=== PATIENT | male | born 1965 | race African-American/Black ===

== ENCOUNTER 2017-02-10 13:55 | Inpatient (IN) | payer OTHER ==
[~2017-02-10] VITALS: Ht 193 cm; Wt 111.1 kg
--- NOTE | 2017-02-10 14:08 | NUR ---
PT STATES THAT HE TRIPPED AND TWISTED HIS R ANKLE. STATES THAT HE STUMBLED DOWN 3 FLIGHTS OF STAIRS WITHOUT FALLING
--- NOTE | 2017-02-10 14:16 | NUR ---
PT TO XRAY AT THIS TIME
--- NOTE | 2017-02-10 14:21 | NUR ---
PT NOTED TO BE PALE, UPON MST ENTERING ROOM AND PLACING PT ON MONITOR. PT NOTED TO BE IN RAPID A-FIB. MD TO BEDSIDE. IV EST TO LAC. PT DENIES CHEST PAIN OR SOB
--- NOTE | 2017-02-10 14:39 | NUR ---
LABS ORDERED PER DR. ALMARAZ REQUEST
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
--- NOTE | 2017-02-10 14:44 | NUR ---
LABS DRAWN AND SENT BY THIS MST BLUE, SST, LAV, PINK ,ROJO
--- NOTE | 2017-02-10 14:44 | NUR ---
PT MEDICATED WITH 10MG IV CARDIZEM PER ORDER AT THIS TIME, HR 140-170 ON MONITOR
[2017-02-10 14:49] LABS: ABSOLUTE BASOPHIL COUNT 0 /CUMM (0.0-0.2); ABSOLUTE EOSINOPHIL COUNT 0.1 /CUMM (0.0-0.7); ABSOLUTE GRANULOCYTE CT 2.5 /CUMM (1.4-6.5); ABSOLUTE LYMPH COUNT 1.6 /CUMM (1.2-3.4); ABSOLUTE MONOCYTE COUNT 0.5 /CUMM (0.10-0.60); BASOPHIL % 0.6 % (0.0-2.0); EOSINOPHIL % 1.5 % (0-5); GRANULOCYTE % 52.5 % (42.2-75.2); HEMATOCRIT 45.2 % (42-52); MEAN CORPUSCULAR HGB 30.2 PG (27.0-31.0); MEAN CORPUSCULAR HGB CONC 33.2 G/DL (33.0-37.0); MEAN CORPUSCULAR VOLUME 91.1 FL (80.0-94.0); MEAN PLATELET VOLUME 8.8 FL (7.4-10.4); PLATELET COUNT 210 /CUMM (130-400); RBC DISTRIBUTION WIDTH 13.7 % (11.5-14.5); RED BLOOD CELL CT 4.96 /CUMM (4.70-6.10); WHITE BLOOD CELL COUNT 4.7 /CUMM (4.8-10.8)
--- NOTE | 2017-02-10 14:50 | NUR ---
CARDIZEM INFUSING AT 10ML/HR AT THIS TIME PER ORDER BY DR DEL VALLE. DR DEL VALLE AT BEDSIDE. BP 165/98 AT THIS TIME.
--- NOTE | 2017-02-10 15:05 | NUR ---
CARDIZEM REMIANS INFUSING PER ORDER AT THIS TIME. SECOND IV PLACED #18 L FOREARM HR 130-150 AT THIS TIME
--- NOTE | 2017-02-10 15:14 | NUR ---
DR FOUNTAIN AT BEDSIDE
--- NOTE | 2017-02-10 15:18 | RADIOLOGY REPORT ---
EXAMINATION: XR PORTABLE CHEST CLINICAL INFORMATION: CHF and effusion, dyspnea with atrial fibrillation. COMPARISON: 08/04/2011 TECHNIQUE: Portable AP view of the chest was obtained. Costophrenic angles are not completely included on this exam. FINDINGS: The heart is enlarged which has increased in size compared with the previous exam. The cardiomediastinal silhouette is otherwise unremarkable. The lungs and pleural spaces appear clear without evidence of congestion, consolidation, or significant appearing effusion or atelectasis. There is no evidence of pneumothorax or pulmonary edema. Included osseous structures appear largely unremarkable. IMPRESSION: Cardiomegaly, no evidence of an acute intrathoracic process.
--- NOTE | 2017-02-10 16:24 | NUR ---
PT SITTING ON STRETCHER, HR REMAINS 100-120 ON MONITOR AT THIS TIME PT COMPLAINT FREE. ASSISTED TO STAND AT BEDIDE AND VOID IN URINAL
--- NOTE | 2017-02-10 16:59 | NUR ---
DIET ORDER PLACED AT THIS TIME, PER DR IVON BRUCE OK
--- NOTE | 2017-02-10 17:01 | History & Physical ---
DENA PADILLA,JOAN 02/10/17 1701: General Information and HPI MD Statement: I have seen and personally examined WIN HODGES and documented this H&P. The patient is a 51 year old M who presented with rt ankle injury. 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 While getting assessed for his right shoulder and the course of obtaining an x-ray, he developed palpitation and upon examination was found to be having atrial fibrillation which is his first episode. Telemetry applications project manager team was called to assess and manage the patient. Patient has swelling and pain over medial aspect of his left ankle, and he described the mechanism of injury to be inversion injury. Patient also complained of right-sided shoulder pain. He was able to move the shoulder normally though. Patient does not give any history of chest pain, palpitation, nausea, vomiting, dizziness, drowsiness, fever, chills that could indicate any other mechanism of fall other than mechanical. Of note, patient denies any past medical history, past surgical history, smoking , alcohol abuse, drug abuse history. 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 Home Services at Home: None Primary Language: Tajik Smoking Status: Never Smoked ETOH Use: denies use Illicit Drug Use: denies illicit drug use Functional Ability ADLs Independent: dressing, eating, toileting, bathing. Ambulation: independent IADLs Independent: shopping, housework, finances, food prep, telephone, transportation , medication admin. Employment History Employment Employed Profession/Employer [employer] Review of Systems Review of Systems Constitutional: Reports: no symptoms. EENTM: Reports: no symptoms. Cardiovascular: Reports: no symptoms. Denies: chest pain, orthopena, palpitations, peripheral edema, syncope. Respiratory: Reports: no symptoms. GI: Reports: no symptoms. Genitourinary: Reports: no symptoms. Musculoskeletal: Reports: see HPI. Skin: Reports: no symptoms. Neurological/Psychological: Reports: no symptoms. Hematologic/Endocrine: Reports: no symptoms. All Other Systems: Reviewed and Negative Exam & Diagnostic Data Last 24 Hrs of Vital Signs/I&O Vital Signs Date Time Temp Pulse Resp B/P B/P Pulse O2 O2 Flow FiO2 Mean Ox Delivery Rate 02/10 1940 98 Nasal 2.0L Cannula 02/10 1926 99.2 67 20 110/72 97 Nasal 2.0L Cannula 02/10 1815 98.4 103 18 111/76 98 Nasal 2.0L Cannula 02/10 1653 98.6 82 18 122/76 98 Nasal 2.0L Cannula 02/10 1623 103 20 137/89 98 Nasal 2.0L Cannula 02/10 1513 98.6 108 18 165/98 98 Room Air 02/10 1509 96 Nasal 2.0L Cannula 02/10 1444 97.3 172 18 132/61 02/10 1403 97.3 52 18 174/76 96 Room Air Intake & Output 02/10 1600 02/10 0800 02/10 0000 Intake Total Output Total Balance Patient 111.13 kg Weight Physical Exam General Appearance Alert, Oriented X3, Cooperative, No Acute Distress Last 24 Hrs of Labs/Alex: Laboratory Tests 02/10/17 1442: TSH Cancelled 02/10/17 1442: Anion Gap 12, Estimated GFR > 60, BUN/Creatinine Ratio 17.0, Glucose 99, Calcium 9.1, Magnesium 2.0, Total Bilirubin 1.3, AST 19, ALT 32, Alkaline Phosphatase 57 , Troponin I < 0.01, Total Protein 6.9, Albumin 3.8, Globulin 3.1, Albumin/ Globulin Ratio 1.2, TSH 1.470, CBC w Diff NO MAN DIFF REQ, RBC 4.96, MCV 91.1, MCH 30.2, RDW 13.7, MPV 8.8, Gran % 52.5, Lymphocytes % 34.1, Monocytes % 11.3 H, Eosinophils % 1.5, Basophils % 0.6, Absolute Granulocytes 2.5, Absolute Lymphocytes 1.6, Absolute Monocytes 0.5, Absolute Eosinophils 0.1, Absolute Basophils 0, PUBS MCHC 33.2 Diagnostic Data EKG Results atrial fibrillation with rate at 169 CXR Results IMPRESSION: Cardiomegaly, no evidence of an acute intrathoracic process. DICTATED BY: MALLY CLARK MD DATE/TIME DICTATED:02/10/171511 DANCING TEACHER:CHRIS DATE/TIME TRANSCRIBED:02/10/171511 Other Results ANKLE X-RAY: IMPRESSION: No acute fracture or dislocation is seen. DICTATED BY: MALLY CLARK MD DATE/TIME DICTATED:02/10/171435 DANCING TEACHER:CHRIS DATE/TIME TRANSCRIBED:02/10/171435 PHYSICAL EXAM: General: well nourished patient not in distress Head: Normocephalic, atraumatic Eyes: Pupils normal in size, regular, reacting to light and accommodation, EOM normal Ears: B/l normal on inspection Nose: Normal on inspection Throat/mouth: Moist mucosa Neck: Supple, full range of motion, no thyromegaly Heart: irregularly irregular rate/rhythm Lung: Normal breath sound bilaterally Added sound not heard Abd: Soft, non-tender, no distention appreciated Back: Normal range of motion Extremities: Normal knee exam bilaterally, no pedal edema, right ankle has 2x2 cm swelling and mild tenderness on palpation medially, Distal neurovascular intact Neurologic: Alert, oriented x3, Cranial exam grossly intact, Speech is clear and coherent Skin: Warm and dry Psychiatric: Calm, cooperative, coherant Assessment/Plan Assessment: 51-year-old male with no significant past medical history, 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 While getting assessed for his right shoulder and the course of obtaining an x-ray, he developed palpitation and upon examination was found to be having atrial fibrillation which is his first episode. Telemetry applications project manager team was called to assess and manage the patient. #New onset atrial fibrillation Patient never had history of cardiac disease, atrial fibrillation, thus will be monitored in the telemetry unit for rate and rhythm, and since the onset is less than 24 hours and for the first time, he does not require any anticoagulation at this point of time. Cardiology has been consulted, will follow their expert opinion. -Serial troponin and EKG to rule out ACS -Patient is on Cardizem drip for rate control right now, continue same -CHADVASc score is 0 so no anticoagulation needed at this point of time if the patient is able to convert to normal sinus rhythm -Check TSH -Check echocardiogram #Mechanical fall -Patient does not give any history of chest pain, palpitation, nausea, vomiting, dizziness, drowsiness, fever, chills that could indicate any other mechanism of fall other than mechanical. Patient had sustained a mechanical fall and is being managed for the complaints as follows: #Right ankle sprain Local and systemic analgesics can be ordered, anti-inflammatory like ibuprofen can be ordered, as the x-ray is negative for any fracture or dislocation #Right shoulder injury -Follow x-ray of right shoulder, and plan accordingly Regular diet, DVT prophylaxis with subcutaneous heparin, full CODE STATUS. As Ranked By This Provider Problem List: 1. Atrial fibrillation 2. Right ankle sprain 3. Right shoulder injury 4. Fall with injury Core Measures/Miscellaneous Acute Coronary Syndrome ACS Diagnosis: No Cerebrovascular Accident CVA/TIA Diagnosis: No Congestive Heart Failure CHF Diagnosis: No Venous Thromboembolism VTE Risk Factors: Age > 40 No [facility] VTE prophylaxis d/t: No contraindications No VTE Pharm Prophylaxis d/t: No contraindications VTE Diagnosis: No VTE Type: NONE VTE Confirmed by (Test): NONE Severe Sepsis Severe Sepsis Present: No Septic Shock Septic Shock Present: No Miscellaneous Documentation Attending Case Discussed With: PATRICK COLÓN MD Primary Care Physician: LESLIE PADILLA,[facility] Patient sees these Specialists Cardiology Level of Patient Care: Telemetry PATRICK COLÓN 02/10/17 9378: Attending MD Review Statement Attending Statement Attending MD Statement: examined this patient, discuss w/resident/PA/EMERGENCY MEDICAL TECHNICIAN/DRIVER, agreed w/resident/PA/EMERGENCY MEDICAL TECHNICIAN/DRIVER, discussed with family, reviewed EMR data (avail), discussed with nursing, discussed with case mgmt, reviewed images, amended to note Attending Assessment/Plan: Assessment: 1. PAF with RVR. 2. Ankle injury PLAN - Admit to telemetry - Serial ECGs and troponins, Echocardiogram, consult cardio. - Continue IV cardizem for rate control, a/c as per cardio. - pain control. - gi/dvt prophyalxis - full code. JOY VALDES MD 02/10/172033: Resident Review Statement Resident Statement: examined this patient, discussed with psychology intern, agreed with psychology intern, reviewed EMR data (avail), reviewed images, amended to note Other Findings: This is 51-year-old -[place] male with no significant past medical history presented to ER for workup off ankle sprain after he stepped on a week and lost balance and twisted his ankle. 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 He denies fall or any head injury. She came to ER for further evaluation of his ankle pain and right shoulder pain. In ER, after getting x-ray, all of a sudden patient started having chest congestion and difficulty in breathing and on air sampling and monitoring patient noted in new onset atrial fibrillation at rate of 170. Patient denied any chest pain, shortness of breath, palpitation, dizziness, lightheadedness, nausea, vomiting or abdominal pain. Denies history of any thyroid disease or any other health condition or hypertension. His vitals on admission were T 97.3, HR 52 which went up to 172, RR 18, BP 174/ 76, O2 sat 98% on room air On physical exam patient noted alert oriented 3 in no acute distress, HEENT PERRLA EOMI, neck supple, no JVD, heart S1-S2 normal without murmur, lungs clear on auscultation, abdomen soft nontender nondistended with preserved wall sounds, no peripheral edema, no focal neuro deficit. Noted limited right ankle range of motion due to pain. Labs were significant for H&H 15/45.2, platelet 210, BUNs 17, creatinine 1, normal LFT, troponin negative, TSH 1.47, magnesium 2 Chest x-ray noted unremarkable Right ankle x-ray did not reveal any fracture or dislocation EKG revealed A. fib at rate of 163 Assessment and plan: This is a 51 year male with no significant past medical history form to be in rapid A. fib while evaluating in ER for ankle injury. 1. Atrial fibrillation with rapid ventricular rate Admit to telemetry Serial troponin and EKG Echocardiogram Continue Cardizem drip for rate control CHADVASc score is 0, will hold anticoagulation for pain patient will convert to normal sinus rhythm TSH noted normal 2. Right Ankle sprain X-ray noted negative for any fracture or dislocation Pain management 3. Right shoulder injury Get x-ray of right shoulder 4. DVT prophylaxis Subcutaneous heparin 5. Full code full code
--- NOTE | 2017-02-10 17:08 | Cons- Cardiology ---
General Information and HPI Consulting Request Date of Consult: 02/10/17 Requested By: Dr. 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 While in radiology from the ER apparently went into PAF with a rapid ventricular rate. No known history of cardiac issues. Dr. 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: NONE Surgical History Surgical History: non-contributory Psychosocial History ETOH Use: denies use Illicit Drug Use: denies illicit drug use Exam & Diagnostic Data Vital Signs and I&O Vital Signs Date Time Temp Pulse Resp B/P B/P Pulse O2 O2 Flow FiO2 Mean Ox Delivery Rate 02/10 1653 98.6 82 18 122/76 98 Nasal 2.0L Cannula 02/10 1623 103 20 137/89 98 Nasal 2.0L Cannula 02/10 1513 98.6 108 18 165/98 98 Room Air 02/10 1509 96 Nasal 2.0L Cannula 02/10 1444 97.3 172 18 132/61 02/10 1403 97.3 52 18 174/76 96 Room Air Intake & Output 02/10 1600 02/10 0800 02/10 0000 02/09 1600 02/09 0800 02/09 0000 Intake Total Output Total Balance Patient 245 lb Weight Labs/Alex Results: Laboratory Tests 02/10 02/10 1442 1442 Chemistry Sodium (137 - 145 mmol/L) 143 Potassium (3.5 - 5.1 mmol/L) 4.2 Chloride (98 - 107 mmol/L) 107 Carbon Dioxide (22 - 30 mmol/L) 25 Anion Gap (5 - 16) 12 BUN (9 - 20 mg/dL) 17 Creatinine (0.7 - 1.2 mg/dL) 1.0 Estimated GFR (>60 ml/min) > 60 BUN/Creatinine Ratio (7 - 25 %) 17.0 Glucose (65 - 99 mg/dL) 99 Calcium (8.4 - 10.2 mg/dL) 9.1 Magnesium (1.6 - 2.3 mg/dL) 2.0 Total Bilirubin (0.2 - 1.3 mg/dL) 1.3 AST (17 - 59 U/L) 19 ALT (21 - 72 U/L) 32 Alkaline Phosphatase (< 127 U/L) 57 Troponin I (<0.11 ng/ml) < 0.01 Total Protein (6.3 - 8.2 g/dL) 6.9 Albumin (3.5 - 5.0 g/dL) 3.8 Globulin (1.9 - 4.2 gm/dL) 3.1 Albumin/Globulin Ratio (1.1 - 2.2 %) 1.2 TSH (0.270 - 4.200 uIU/mL) Cancelled 1.470 Hematology CBC w Diff NO MAN DIFF REQ WBC (4.8 - 10.8 /CUMM) 4.7 L RBC (4.70 - 6.10 /CUMM) 4.96 Hgb (14.0 - 18.0 G/DL) 15.0 Hct (42 - 52 %) 45.2 MCV (80.0 - 94.0 FL) 91.1 MCH (27.0 - 31.0 PG) 30.2 RDW (11.5 - 14.5 %) 13.7 Plt Count (130 - 400 /CUMM) 210 MPV (7.4 - 10.4 FL) 8.8 Gran % (42.2 - 75.2 %) 52.5 Lymphocytes % (20.5 - 51.1 %) 34.1 Monocytes % (1.7 - 9.3 %) 11.3 H Eosinophils % (0 - 5 %) 1.5 Basophils % (0.0 - 2.0 %) 0.6 Absolute Granulocytes (1.4 - 6.5 /CUMM) 2.5 Absolute Lymphocytes (1.2 - 3.4 /CUMM) 1.6 Absolute Monocytes (0.10 - 0.60 /CUMM) 0.5 Absolute Eosinophils (0.0 - 0.7 /CUMM) 0.1 Absolute Basophils (0.0 - 0.2 /CUMM) 0 PUBS MCHC (33.0 - 37.0 G/DL) 33.2 Diagnostic Data EKG Results Atrial fibrillation: possible LVH; rapid ventriuclar rate with non specific STT changes CXR Results FINDINGS: The heart is enlarged which has increased in size compared with the previous exam. The cardiomediastinal silhouette is otherwise unremarkable. The lungs and pleural spaces appear clear without evidence of congestion, consolidation, or significant appearing effusion or atelectasis. There is no evidence of pneumothorax or pulmonary edema. Included osseous structures appear largely unremarkable. IMPRESSION: Cardiomegaly, no evidence of an acute intrathoracic process. Assessment/Plan Assessment/Plan Assessment: 1. PAF with rapid ventricular rate. 2. Ankle imjury Recommendations: - Admit to telemetry - Full lab evaluation - Serial ECGs and troponins - Echocardiogram - Continue IV cardizem for rate control - No anticoagulation for now. - Hopefully the patient will spontaneously revert to NSR - Reassess in AM for further plans. - If the patient reverts spontaneously to NSR and no other issues arise, he can be safely discharged in 24 hours on Metoprolol 25 daily. IF he does not revert to NSR, further plans in 24 hours. Consult Acknowledgment - Thank you for your consult request.
--- NOTE | 2017-02-10 18:01 | NUR ---
PT TO ROOM 189 BED 1
--- NOTE | 2017-02-10 18:13 | NUR ---
PTS DINNER TRAY NEVER ARRIVED, PTS FRIEND OUT TO GET PT DINNER. PT RESTING ON STRETCHER, REMAIS A-FIB ON MONITOR, CARDIZEM REMAINS INFUSING PER ORDER AT 10ML/HR AT THIS TIME. HR 90s-110s. BP 111/78
--- NOTE | 2017-02-10 18:39 | NUR ---
REPORT GIVEN TO FLOOR, [facility] CALLED FOR TRANSPORT
[2017-02-10 19:26] VITALS: BP 110/72
[2017-02-10 23:51] VITALS: BP 90/60
--- NOTE | 2017-02-11 06:31 | PN- Housestaff ---
See Addendum Subjective Follow-up For: Atrial fibrillation ankle sprain shoulder injury Complaints: no complaints Tele-Events Since Last Visit: A. flutter, 50-70s, multiple PVCs Subjective: Patient is comfortably lying in bed. Denies any sob, cp, dizziness, palpitation. Review of Systems Constitutional: Reports: see HPI. Objective Last 24 Hrs of Vital Signs/I&O Vital Signs Date Time Temp Pulse Resp B/P B/P Pulse O2 O2 Flow FiO2 Mean Ox Delivery Rate 02/10 2351 98.0 70 20 90/60 97 Nasal 2.0L Cannula 02/10 1940 98 Nasal 2.0L Cannula 02/10 1926 99.2 67 20 110/72 97 Nasal 2.0L Cannula 02/10 1815 98.4 103 18 111/76 98 Nasal 2.0L Cannula 02/10 1653 98.6 82 18 122/76 98 Nasal 2.0L Cannula 02/10 1623 103 20 137/89 98 Nasal 2.0L Cannula 02/10 1513 98.6 108 18 165/98 98 Room Air 02/10 1509 96 Nasal 2.0L Cannula 02/10 1444 97.3 172 18 132/61 02/10 1403 97.3 52 18 174/76 96 Room Air Intake & Output 02/11 0800 02/11 0000 02/10 1600 Intake Total 240 Output Total Balance 240 Intake, Oral 240 Patient 245 lb 245 lb Weight Weight Reported by Patient Measurement Method Physical Exam General Appearance: Alert, Oriented X3, Cooperative, No Acute Distress Skin: No Rashes Skin Temp/Moisture Exam: Warm/Dry Sepsis Skin Exam (color): Normal for Ethnicity HEENT: Atraumatic, PERRLA, EOMI, Mucous Membr. moist/pink Neck: Supple, No JVD Cardiovascular: Normal S1, Normal S2, No Murmurs Lungs: Clear to Auscultation, Normal Air Movement Abdomen: Normal Bowel Sounds, Soft, No Tenderness Neurological: Normal Speech, Strength at 5/5 X4 Ext, Normal Tone, Sensation Intact, Cranial Nerves 3-12 NL Extremities: No Cyanosis, No Edema Vascular: Pulses Symmetrical Current Medications: Current Medications Sig/Laine Start time Last Medication Dose Route Stop Time Status Admin Acetaminophen 650 MG Q6P PRN 02/10 2100 AC 02/10 PO 2159 Diltiazem HCl 125 MG Q12H 02/10 1645 AC 02/11 Sodium Chloride 100 ML IV 0226 Diltiazem HCl 125 MG Q24H 02/10 1615 DC Sodium Chloride 100 ML IV Diltiazem HCl 0 .STK-MED ONE 02/10 1450 DC IV Diltiazem HCl 10 MG ONCE ONE 02/10 1445 DC 02/10 IV PUSH 02/10 1446 1444 Diltiazem HCl 125 MG Q12H 02/10 1445 DC 02/10 Sodium Chloride 100 ML IV 1507 Diltiazem HCl 0 .STK-MED ONE 02/10 1439 DC .ROUTE Heparin Sodium 5,000 UNIT Q8 02/10 1718 AC (Porcine) SC Ibuprofen 600 MG Q6P PRN 02/10 2100 AC PO Last 24 Hrs of Lab/Alex Results Last 24 Hrs of Labs/Mics: Laboratory Tests 02/11/17 0625: Anion Gap 11, Estimated GFR > 60, BUN/Creatinine Ratio 16.7, Troponin I < 0.01 02/11/17 0600: Sodium Cancelled, Potassium Cancelled, Chloride Cancelled, Carbon Dioxide Cancelled, Anion Gap Cancelled, BUN Cancelled, Creatinine Cancelled, BUN/ Creatinine Ratio Cancelled 02/10/17 2200: Troponin I 0.02 02/10/17 1442: TSH Cancelled 02/10/17 1442: Anion Gap 12, Estimated GFR > 60, BUN/Creatinine Ratio 17.0, Glucose 99, Calcium 9.1, Magnesium 2.0, Total Bilirubin 1.3, AST 19, ALT 32, Alkaline Phosphatase 57 , Troponin I < 0.01, Total Protein 6.9, Albumin 3.8, Globulin 3.1, Albumin/ Globulin Ratio 1.2, TSH 1.470, CBC w Diff NO MAN DIFF REQ, RBC 4.96, MCV 91.1, MCH 30.2, RDW 13.7, MPV 8.8, Gran % 52.5, Lymphocytes % 34.1, Monocytes % 11.3 H, Eosinophils % 1.5, Basophils % 0.6, Absolute Granulocytes 2.5, Absolute Lymphocytes 1.6, Absolute Monocytes 0.5, Absolute Eosinophils 0.1, Absolute Basophils 0, PUBS MCHC 33.2 Assessment/Plan Assessment: This is a 51 year male with no significant past medical history form to be in rapid A. fib while evaluating in ER for ankle injury. 1. Atrial fibrillation with rapid ventricular rate still remains in Atrial flutter Serial troponin and EKG, remains negative Echocardiogram in am Continue Cardizem drip for rate control CHADVASc score is 0, will hold anticoagulation for pain patient will convert to normal sinus rhythm TSH noted normal awaiting cardiology recommendation in am 2. Right Ankle sprain X-ray noted negative for any fracture or dislocation Pain management 3. Right shoulder injury x-ray of right shoulder pending 4. DVT prophylaxis Subcutaneous heparin 5. Full code Problem List: 1. Atrial fibrillation 2. Right ankle sprain 3. Right shoulder injury Pain Ratin Pain Location: rt. shoulder and ankle Pain Goal: Pain 4 or less Pain Plan: tylenol Tomorrow's Labs & Rationales: BEP DVT/Prophylaxis: pharmacological
[2017-02-11 08:56] VITALS: BP 100/63
--- NOTE | 2017-02-11 09:03 | PN- Cardiology ---
Subjective Subjective: * No complaints of palpitations, chest pain or shortness of breath. * Patient has atrial fibrillation of unclear duration. He has no awareness of his atrial fibrillation. Objective Vital Signs and I&Os Vital Signs Date Time Temp Pulse Resp B/P B/P Pulse O2 O2 Flow FiO2 Mean Ox Delivery Rate 02/11 0856 98.2 113 18 100/63 93 02/10 2351 98.0 70 20 90/60 97 Nasal 2.0L Cannula 02/10 1940 98 Nasal 2.0L Cannula 02/10 1926 99.2 67 20 110/72 97 Nasal 2.0L Cannula 02/10 1815 98.4 103 18 111/76 98 Nasal 2.0L Cannula 02/10 1653 98.6 82 18 122/76 98 Nasal 2.0L Cannula 02/10 1623 103 20 137/89 98 Nasal 2.0L Cannula 02/10 1513 98.6 108 18 165/98 98 Room Air 02/10 1509 96 Nasal 2.0L Cannula 02/10 1444 97.3 172 18 132/61 02/10 1403 97.3 52 18 174/76 96 Room Air Intake & Output 02/11 1600 02/11 0800 02/11 0000 02/10 1600 02/10 0800 02/10 0000 Intake Total 575 240 Output Total Balance 575 240 Intake, IV 95 Intake, Oral 480 240 Patient 245 lb 245 lb Weight Weight Reported by Patient Measurement Method Physical Exam: General: WD/ overweight male in NAD; alert and oriented x 3 Neck: no JVD Heart: irregularly irregular Lungs: clear bilaterally Extremities: no edema Assessment/Plan Assessment/Plan * This patient has atrial fibrillation of unclear duration. There are no ECG's available showing a sinus rhythm. We will begin Xarelto 20mg daily. Check a free T4. Obtain an echocardiogram. Begin Cardizem 60mg TID. Stop IV Cardizem after the second oral dose. * Obtain a lipid profile. * This patient will need a routine outpatient stress test. Continue telemetry? Yes
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
[2017-02-11 16:20] VITALS: BP 104/67
--- NOTE | 2017-02-11 22:35 | RADIOLOGY REPORT ---
EXAMINATION: XR SHOULDER, RIGHT CLINICAL INFORMATION: Right shoulder pain following a fall. COMPARISON: No relevant prior studies are available for comparison. TECHNIQUE: AP external rotation, Grashey, scapular Y, and axillary views of the right shoulder. FINDINGS: No fracture or dislocation. Acromioclavicular marginal osteophytes. No osseous erosion. No abnormal soft tissue calcification. IMPRESSION: Mild acromioclavicular osteoarthritis.
[2017-02-11 23:30] VITALS: BP 102/78
[2017-02-11 23:48] VITALS: BP 102/78
[2017-02-12 07:39] VITALS: BP 100/70
--- NOTE | 2017-02-12 08:25 | NUR ---
4 BEAT RUN, NOTIFIED LEARNING SUPPORT RESOURCE ROOM TEACHER DR CAICEDO. PATIENT ASYMPTOMATIC. AFIB, AFLUTTER ON MONITOR, HR 80'S-110'S. PER LEARNING SUPPORT RESOURCE ROOM TEACHER WILL MAINTAIN CURRENT MEDICATION REGIMEN AT THIS TIME.
[2017-02-12 09:41] VITALS: BP 102/50
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
[2017-02-12] MEDS ORDERED: ATORVASTATIN CA20 M1 PO (12:03)
[2017-02-12] MEDS ORDERED: XARELTO10 M1 PO ×2 (12:03→12:14)
[2017-02-12] MEDS ORDERED: CARDIZEM CD240 M1 PO (12:03)
--- NOTE | 2017-02-12 12:06 | Patient Discharge Instructions ---
Discharge Instructions General Discharge Information You were seen/treated for: Rapid Afib Watch for these problems: chest pain, heart racing/pounding, shortness of breath, dizziness Special Instructions: Please follow up by Dr. Florian in one week's time. Please return to emergency if symptoms worsen. Diet Continue normal diet: No Recommended Diet: Heart Healthy Activity Full Activity/No Limits: No Activity Self Limited: Yes Acute Coronary Syndrome Inclusion Criteria At DC or during hospital stay patient has or had the following: ACS DIAGNOSIS No Discharge Core Measures Meds if any: Prescribed or Continued at Discharge Meds if any: NOT Prescribed or Continued at Discharge Congestive Heart Failure Inclusion Criteria At DC or during hospital stay patient has or had the following: CHF DIAGNOSIS No Discharge Core Measures Meds if any: Prescribed or Continued at Discharge Meds if any: NOT Prescribed or Continued at Discharge Cerebrovascular accident Inclusion Criteria At DC or during hospital stay patient has or had the following: CVA/TIA Diagnosis No Discharge Core Measures Meds if any: Prescribed or Continued at Discharge Meds if any: NOT Prescribed or Continued at Discharge Venous thromboembolism Inclusion Criteria VTE Diagnosis No VTE Type NONE VTE Confirmed by (Test) NONE Discharge Core Measures - Per Current guidelines, there needs to be overlap - treatment for the first 5 days of Warfarin therapy. - If discharged on Warfarin prior to 5 days of - overlap therapy, the patient will need to be - assessed for post discharge needs including - *Post discharge parental anticoagulation - *Warfarin and/or parental anticoagulation education - *Follow up date to check INR post discharge At least 5 days overlap therapy as Inpatient No Meds if any: Prescribed or Continued at Discharge Note: Overlap Therapy is Warfarin and Anticoagulant Meds if any: NOT Prescribed or Continued at Discharge
[2017-02-12] MEDS ORDERED: XARELTO20 M2 PO (12:15)
--- NOTE | 2017-02-12 12:20 | NUR ---
PATIENT OOB AMBULATING IN HALLWAY. 4 BEAT RUN. PATIENT REPORTS NO SYMPTOMS. NOTIFIED DR SIMPSON. ORDER TO GIVE ADDITIONAL CARDIZEM AND POSSIBLE DISCHARGE HOME TODAY. WILL CONTINUE TO MONITOR.
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
--- NOTE | 2017-02-12 14:00 | NUR ---
MULTIPLE 4 BEATS THIS AFTERNOON. NOTIFIED WRAPPER CASER. PATIENT ASYMPTOMATIC. WILL CONTINUE TO MONITOR.
[2017-02-12 14:30] VITALS: BP 116/76
[2017-02-12 15:15] VITALS: BP 120/78
--- NOTE | 2017-02-12 15:16 | NUR ---
10 BEAT RUN, HIGH AT 170'S. PATIENT WALKING IN RESOURCE LIBRARY TALKING ON PHONE. NOTIFIED DR SIMPSON. DISCHARGE CANCELLED AT THIS TIME.
[2017-02-12 15:56] VITALS: BP 118/90
--- NOTE | 2017-02-12 16:01 | ECHOCARDIOGRAM REPORT ---
WIN HODGES Age: 51 : 1965 Gender: M Exam Date: 02/12/2017 10:18 Exam Location: 1 [address] Ht (in): 76 Wt (lb): 245 BSA: 2.46 BP: 100 / 70 Ordering Physician: JOY VALDES MD Referring Physician: Harry Florian MD Technologist: Evon Dexter [facility] Room Number: 189-02 Indications: AFIB/FLUTTER Rhythm: Atrial fibrillation Technical Quality: Good FINDINGS Left Ventricle Mild left ventricular dilatation. Mildly abnormal left ventricular ejection fraction estimated at 35-40%. Mildly reduced global left ventricular systolic function. Right Ventricle Right ventricle not well visualized, grossly normal. Right Atrium Normal right atrial size. Left Atrium Mild to moderate left atrial dilatation. Mitral Valve Mitral valve thickened. [id number] mitral regurgitation. Aortic Valve Trileaflet aortic valve. Diffuse thickening (sclerosis) of the aortic valve cusps without reduced excursion. No aortic stenosis. No aortic regurgitation. Tricuspid Valve Tricuspid valve not well visualized, grossly normal. Mild-to- moderate tricuspid regurgitation. Right ventricular systolic pressure estimated at 44 mmHg. Pulmonic Valve Pulmonic valve not well visualized, grossly normal. Pericardium Minimal pericardial effusion (normal variant). Great Vessels Aortic root and proximal ascending aorta not well visualized, grossly normal. CONCLUSIONS 1. Mild aortic sclerosis is present with no valvular stenosis or insufficiency. 2. MItral leaflet thickening is present with mild to moderate mitral insufficiency and mild to moderate left atrial enlargement. 3. A physiologic pericardial effusion is present. 4. The left ventricular chamber is mildly dilated with global hypokinesia and an ejection fraction of 35-40%. 5. Mild to moderate tricuspid insufficiency is present with an estimated RV systolic pressure of 44 mmHg. 6. A followoup study is recommended when the patient in in sinus rhythm to reassess LV systolic function. Harry Florian M.D. (Electronically Signed) Final Date: 12 February 2017 16:01 MEASUREMENTS (Male / Female) Normal Values 2D ECHO LV Diastolic Diameter PLAX 6.4 cm 4.2 - 5.9 / 3.9 - 5.3 cm LV Systolic Diameter PLAX 5.5 cm 2.1 - 4.0 cm LV Fractional Shortening PLAX 14.1 % 25 - 46 % LV Ejection Fraction 2D Teich 29.3 % IVS Diastolic Thickness 1.0 cm LVPW Diastolic Thickness 1.2 cm LV Relative Wall Thickness 0.3 RV Internal Dim ED PLAX 3.8 cm 1.9 - 3.8 cm LVOT Diameter 2.1 cm Aortic Root Diameter 3.1 cm LA Systolic Diameter LX 4.4 cm 3.0 - 4.0 / 2.7 - 3.8 cm LV Ejection Fraction MOD BP 37.8 % >= 55 % LV Diastolic Length 4C 8.2 cm 6.9 - 10.3 cm LV Diastolic Area 4C 34.4 cm LV Diastolic Volume MOD 4C 118.0 cm LV Ejection Fraction MOD 4C 36.4 % LV Stroke Volume MOD 4C 43.0 cm LV Systolic Length 4C 8.3 cm LV Systolic Area 4C 27.5 cm LV Systolic Volume MOD 4C 75.0 cm LV Ejection Fraction MOD 2C 39.9 % LV Diastolic Volume 4C AL 122.1 cm 85 - 139 / 69 - 109 cm LV Systolic Volume 4C AL 77.6 cm LV Ejection Fraction 4C AL 36.4 % LV Stroke Volume 4C AL 44.4 cm LV Ejection Fraction 2C AL 39.9 % LA Volume 92.0 cm 18 - 58 / 22 - 52 cm Ascending Aorta Diameter 3.1 cm DOPPLER AV Peak Velocity 139.0 cm/s AV Peak Gradient 7.7 mmHg AV Mean Velocity 89.3 cm/s AV Mean Gradient 4.0 mmHg AV Velocity Time Integral 27.9 cm LVOT Peak Velocity 97.8 cm/s LVOT Peak Gradient 3.8 mmHg LVOT Mean Velocity 63.8 cm/s LVOT Mean Gradient 2.0 mmHg LVOT Velocity Time Integral 20.9 cm LVOT Stroke Volume 72.4 cm AV Area Cont Eq vti 2.6 cm AV Area Cont Eq pk 2.4 cm MV Peak Velocity 144.0 cm/s MV Peak Gradient 8.3 mmHg MV Mean Velocity 81.9 cm/s MV Mean Gradient 3.0 mmHg Mitral E Point Velocity 112.5 cm/s MV PHT Velocity 153.0 cm/s MV Deceleration Dickenson 518.0 cm/s MV Pressure Half Time 88.6 ms MV Area PHT 2.5 cm MV Deceleration Time 174.5 ms TR Peak Velocity 288.0 cm/s TR Peak Gradient 33.2 mmHg Right Atrial Pressure 10.0 mmHg Pulmonary Artery Systolic Pressu 43.2 mmHg Right Ventricular Systolic Press 43.2 mmHg PV Peak Velocity 101.0 cm/s PV Peak Gradient 4.1 mmHg PV Mean Velocity 66.6 cm/s PV Mean Gradient 2.0 mmHg PV Velocity Time Integral 20.0 cm LV E' Lateral Velocity 10.0 cm/s Mitral E to LV E' Lateral Ratio 11.3 LV E' Septal Velocity 5.9 cm/s Mitral E to LV E' Septal Ratio 19.2
--- NOTE | 2017-02-12 18:02 | NUR ---
PT WAS GIVEN 25 MG LOPRESSOR AT 1600. PT CONTINUES TO HAVE TACHYCARDIA ( HIGH 190) QUITE FREQUENTLY. HE ALSO CONTINUES TO HAVE FREQUENT 4 AND 5 BEAT RUNS OF VTACH. ELECTRICAL INSTRUMENT TECHNICIAN IMGE AND RESIDENT ALESIA HAVE BEEN MADE AWARE THROUGHT THIS RN'S SHIFT THUS FAR. NO NEW ORDERS. PT DENIES PAIN, HEART PALPITATIONS, HEADACHE, BLURRY VISION AND ENDORSES THAT HE FEELS GOOD.
--- NOTE | 2017-02-12 18:20 | NUR ---
INFOMRED GARDENING MANAGER IMGE THAT THE PATIENT HAS HAD A TOTAL OF SIX 5-BEAT RUNS OF VTACH AND FIVE 4-BEATS RUNS OF VTACH SINCE THE START OF THIS RN'S SHIFT AT 1500.
--- NOTE | 2017-02-12 18:37 | Event Note ---
Event Note Event Note: Patient was stable to get discharged today, however, had runs of NSVT with HR going up to as high as 190, despite receiving Cardizem 240mg and Metoprolol 25mg BID. Patient completely assymptommatic and VS otherwise stable. Spoke with Dr. Cortez who recommended to give Lopressor 5mg IV push x1, to see if V-Tach reloves, wait 15 mins and give another push of 5mg x1. D/C was subsequently held. Attending notified.
[2017-02-13 00:24] VITALS: BP 120/72
[2017-02-13 08:51] VITALS: BP 92/57
--- NOTE | 2017-02-13 09:07 | PN- Housestaff ---
DENA PADILLA,JOAN 02/13/17 0907: Subjective Follow-up For: new onset atrial fibrillation Complaints: no complaints Tele-Events Since Last Visit: a flutter with HR 60- 100s, at 0400 hr went up to 150 /min, also had a 4 beat, and 6 beat NSVT, triplet, and couplets overnight. Subjective: I followed up and examined the patient today. He is resting comfortably in his bed, not in distress, no complaints, and vital signs stable except heart rate noted above, no issues overnight. Review of Systems Constitutional: Reports: no symptoms. Objective Last 24 Hrs of Vital Signs/I&O Vital Signs Date Time Temp Pulse Resp B/P B/P Pulse O2 O2 Flow FiO2 Mean Ox Delivery Rate 02/13 1400 80 02/13 0953 78 9257 02/13 0851 97.4 78 18 57 97 Room Air 02/13 0024 98.2 83 20 120/72 96 02/12 2145 78 116/64 02/12 2026 64 02/12 1838 130 136/70 Intake & Output 02/13 1600 02/13 0800 02/13 0000 Intake Total 970 975 Output Total Balance 970 975 Intake, IV 10 15 Intake, Oral 960 960 Number 1 Bowel Movements Physical Exam General Appearance: Alert, Oriented X3, Cooperative, No Acute Distress Other Physical Findings: Head: Normocephalic, atraumatic Eyes: Pupils normal in size, regular, reacting to light and accommodation, EOM normal Ears: B/l normal on inspection Nose: Normal on inspection Throat/mouth: Moist mucosa Neck: Supple, full range of motion, no thyromegaly Heart: irregularly irregular rate/rhythm Lung: Normal breath sound bilaterally Added sound not heard Abd: Soft, non-tender, no distention appreciated Back: Normal range of motion Extremities: Normal knee exam bilaterally, no pedal edema, right ankle has 2x2 cm swelling and mild tenderness on palpation medially (decreased than at presentation), Distal neurovascular intact Neurologic: Alert, oriented x3, Cranial exam grossly intact, Speech is clear and coherent Skin: Warm and dry Psychiatric: Calm, cooperative, coherant Current Medications: Current Medications Sig/Laine Start time Last Medication Dose Route Stop Time Status Admin Acetaminophen 650 MG Q6P PRN 02/10 2100 AC 02/10 PO 215 Atorvastatin Calcium 20 MG 1700 02/12 1700 AC 02/13 PO 1631 Diltiazem HCl 240 MG DAILY 02/13 1000 DC 02/13 PO 0953 Ibuprofen 600 MG Q6P PRN 02/10 2100 AC PO Metoprolol Tartrate 50 MG BID 02/13 2200 AC 02/13 PO 2110 Metoprolol Tartrate 25 MG BID 02/12 1529 DC 02/13 PO 0953 Rivaroxaban 20 MG DAILY 02/11 1215 AC 02/13 PO 0953 Last 24 Hrs of Lab/Alex Results Last 24 Hrs of Labs/Mics: Laboratory Tests 02/13/17 0730: Anion Gap 10, Estimated GFR > 60, BUN/Creatinine Ratio 14.0, Magnesium 2.0 Assessment/Plan Assessment: This is a 51 year male with no significant past medical history form to be in rapid A. fib while evaluating in ER for ankle injury. 1. Atrial fibrillation with rapid ventricular rate rhythm is now in Atrial flutter without symptoms. Echocardiogram mild LV dilatation, LVEF at 35-40%, with mildly reduced global LV systolic function, but it was done when the patient was not in sunus rhythm, so will require a follow up study. CHADVASc score is 0, will hold anticoagulation for pain patient will convert to normal sinus rhythm. patient had multiple non-sustained ventricular tachycardia overnight and yesterday, warranting a stress earlier (was planned for outpatient workup). NPO from midnight for nuclear stress test tomorrow at 11am arranged. following cardiology recommendation 2. Right Ankle sprain X-ray noted negative for any fracture or dislocation Pain management 3. Right shoulder injury x-ray of right shoulder shows mild acromioclavicular osteoarthritis, no acute changes noted. Pain has decreased. Might need outpatient workup/follow up. 4. DVT prophylaxis Subcutaneous heparin 5. Full code 6. Heart healthy diet 7. DVT ppx pharmacological Problem List: 1. Atrial flutter 2. HFrEF (heart failure with reduced ejection fraction) 3. Right ankle sprain 4. Arthritis of right acromioclavicular joint Pain Ratin Pain Location: right shoulder Pain Goal: Pain 4 or less Pain Plan: prn Tomorrow's Labs & Rationales: BEMg MEL Quach MD, WILLIAM 02/13/17 6639: Attending MD Review Statement Attending Statement Attending MD Statement: examined this patient, discuss w/resident/PA/HEALTH ASSISTANT, agreed w/resident/PA/HEALTH ASSISTANT, reviewed EMR data (avail), discussed with nursing, amended to note Attending Assessment/Plan: The patient was seen and discussed with house staff and Cardiology. Will have stress test tomorrow.
--- NOTE | 2017-02-13 09:24 | NUR ---
PT HAD A 4 BEAT RUN OF V TACH. MD JOAN FERNANDES MADE AWARE. WILL CONTINUE TO MONITOR.
--- NOTE | 2017-02-13 10:09 | NUR ---
PT HAD A 5 RUN OF V TACH AND HEART RATE WENT UP TO 160'S WITH PVC'S. MD JOAN FERNANDES MADE AWARE; WILL CONTINUE TO MONITOR.
--- NOTE | 2017-02-13 11:59 | PN- Cardiology ---
Subjective Subjective: The patient reports that he is feeling well. No chest pain. No palpitations. No diaphoresis. No lightheadedness or dizziness. No nausea vomiting. He was noted on telemetry to have multiple short runs of nonsustained ventricular tachycardia. He remains in atrial fibrillation with rate under control. Objective Vital Signs and I&Os Vital Signs Date Time Temp Pulse Resp B/P B/P Pulse O2 O2 Flow FiO2 Mean Ox Delivery Rate 02/13 0953 78 92/57 02/13 0851 97.4 78 18 92/57 97 Room Air 02/13 0024 98.2 83 20 120/72 96 02/12 2145 78 116/64 02/12 2026 64 02/12 1838 130 136/70 02/12 1611 129 128/74 02/12 1556 98.6 114 18 118/90 95 02/12 1515 128 120/78 02/12 1430 155 116/76 Intake & Output 02/13 1600 02/13 0800 02/13 0000 02/12 1600 02/12 0800 02/12 0000 Intake Total 975 800 730 Output Total Balance 975 800 730 Intake, IV 15 10 Intake, Oral 960 800 720 Physical Exam: Gen: NAD HEENT: normal Lungs: clear to auscultation, normal resp. effort Heart: Irregularly irregular S1, S2, no murmurs Abdomen: Soft, nontender, no masses Extremities: No clubbing, cyanosis, or edema. Neuro: Alert and oriented x 3, cranial nerves intact Current Medications: Current Medications Sig/Laine Start time Last Medication Dose Route Stop Time Status Admin Acetaminophen 650 MG Q6P PRN 02/10 2100 AC 02/10 PO 2159 Atorvastatin Calcium 20 MG 1700 02/12 1700 AC 02/12 PO 1754 Diltiazem HCl 240 MG DAILY 02/13 1000 AC 02/13 PO 0953 Diltiazem HCl 180 MG ONCE ONE 02/12 1200 DC 02/12 PO 02/12 1201 1428 Diltiazem HCl 60 MG Q8 02/11 1015 DC 02/12 PO 0610 Ibuprofen 600 MG Q6P PRN 02/10 2100 AC PO Magnesium Oxide 400 MG ONE ONE 02/12 1630 DC 02/12 PO 02/12 1631 1752 Metoprolol Tartrate 5 MG ONCE ONE 02/12 1830 DC 02/12 IV 02/12 1831 1838 Metoprolol Tartrate 25 MG BID 02/12 1529 AC 02/13 PO 0953 Patient Medication 1 UNIT ONE NR 02/12 1545 DC Teaching ED 02/12 1600 Patient Medication 1 UNIT ONE NR 02/12 1215 [facility] ED 02/12 1230 Rivaroxaban 20 MG DAILY 02/11 1215 AC 02/13 PO 0953 Results Last 48 Hrs of Labs/Mics: Laboratory Tests 02/13/17 0730: Anion Gap 10, Estimated GFR > 60, BUN/Creatinine Ratio 14.0, Magnesium 2.0 02/12/17 0640: Phosphorus 4.3, Magnesium 1.9, Triglycerides 73, Cholesterol 198, LDL Cholesterol, Calc 150 H, HDL Cholesterol 34 L, Cholesterol/HDL Ratio 6 H Recent Imaging Studies: Echocardiogram: 1. Mild aortic sclerosis is present with no valvular stenosis or insufficiency. 2. MItral leaflet thickening is present with mild to moderate mitral insufficiency and mild to moderate left atrial enlargement. 3. A physiologic pericardial effusion is present. 4. The left ventricular chamber is mildly dilated with global hypokinesia and an ejection fraction of 35-40%. 5. Mild to moderate tricuspid insufficiency is present with an estimated RV systolic pressure of 44 mmHg. 6. A followoup study is recommended when the patient in in sinus rhythm to reassess LV systolic function. Assessment/Plan Assessment/Plan Assessment: 1. Atrial fibrillation 2. Multiple episodes of nonsustained echo tachycardia 3. Chronic systolic heart failure, LVEF 3540 percent Plan: * Discontinue diltiazem given left ventricular systolic dysfunction * Increase metoprolol to 50 mg by mouth twice a day. This should be increased further as needed to control ventricular rate. * Continue Xarelto * Continue to monitor for further arrhythmias on telemetry Continue telemetry? Yes
[2017-02-13 16:53] VITALS: BP 106/72
[2017-02-14 01:41] VITALS: BP 128/68
--- NOTE | 2017-02-14 06:25 | NUR ---
HEART RATE WENT DOWN TO 46. HEART RATE IN THE 50'S FREQUENTLY WHILE SLEEPING. BP 120/60. PATIENT SLEEPING. DR. GONSALES NOTIFIED. NO INTERVENTIONS ORDERED AT THIS TIME. WILL CONTINUE TO MONITOR.
[2017-02-14 08:00] VITALS: BP 104/80
[2017-02-14 13:34] VITALS: BP 104/70
--- NOTE | 2017-02-14 13:51 | PN- Housestaff ---
DENA PADILLA,JOAN 02/14/17 1351: Subjective Follow-up For: New-onset atrial fibrillation Complaints: no complaints Tele-Events Since Last Visit: Atrial flutter, heart rate ranging from 66-86, with PVCs overnight, and 1:35 AM, heart rate dropped down to 49, at 3:21 AM he had 8 beats of ventricular tachycardia. Subjective: I followed up and examined the patient today. He is resting comfortably in his bed, does not have any complaints, vital signs stable, telemetry events noted as above, no overnight issues. He is currently nothing by mouth, waiting for his stress test to be done later today. Review of Systems Constitutional: Reports: no symptoms. Objective Last 24 Hrs of Vital Signs/I&O Vital Signs Date Time Temp Pulse Resp B/P B/P Pulse O2 O2 Flow FiO2 Mean Ox Delivery Rate 02/14 1647 98.0 101 20 108/68 97 Room Air 02/14 1334 155 104/70 02/14 1330 155 104/70 02/14 0800 98.2 96 18 104/80 97 02/14 0141 97.9 76 18 128/68 97 Room Air 02/13 2110 106 122/68 Intake & Output 02/14 1600 /02 0800 05/ 0000 Intake Total 680 0 450 Output Total Balance 680 0 450 Intake, Oral 680 0 450 Number 0 Bowel Movements Physical Exam General Appearance: Alert, Oriented X3, Cooperative, No Acute Distress, obese Other Physical Findings: Head: Normocephalic, atraumatic Eyes: Pupils normal in size, regular, reacting to light and accommodation, EOM normal Ears: B/l normal on inspection Nose: Normal on inspection Throat/mouth: Moist mucosa Neck: Supple, full range of motion, no thyromegaly Heart: irregularly irregular rate/rhythm Lung: Normal breath sound bilaterally Added sound not heard Abd: Soft, non-tender, no distention appreciated Back: Normal range of motion Extremities: Normal knee exam bilaterally, no pedal edema, right ankle has 2x2 cm swelling and mild tenderness on palpation medially (progressively less than at presentation), Distal neurovascular intact, patient has been walking around the telemetry floor Neurologic: Alert, oriented x3, Cranial exam grossly intact, Speech is clear and coherent Skin: Warm and dry Psychiatric: Calm, cooperative, coherant Current Medications: Current Medications Sig/Laine Start time Last Medication Dose Route Stop Time Status Admin Acetaminophen 650 MG Q6P PRN 02/10 2100 DCD 02/10 PO 2159 Atorvastatin Calcium 20 MG 1700 02/12 1700 DCD 02/14 PO 1824 Dipyridamole 60 MG ONE ONE 02/14 1100 DC Dextrose/Water 28 ML IV 02/14 1101 Ibuprofen 600 MG Q6P PRN 02/10 2100 DCD PO Metoprolol Tartrate 50 MG BID 02/13 2200 DCD 02/14 PO 1330 Patient Medication 1 ED .STK-MED ONE 02/14 1413 DC Teaching ED 02/14 1414 Rivaroxaban 20 MG DAILY 02/11 1215 DCD 02/14 PO 0959 Last 24 Hrs of Lab/Alex Results Last 24 Hrs of Labs/Mics: Laboratory Tests 02/14/17 0603: Anion Gap 11, Estimated GFR > 60, BUN/Creatinine Ratio 15.5, Magnesium 1.9 Assessment/Plan Assessment: This is a 51 year male with no significant past medical history form to be in rapid A. fib while evaluating in ER for ankle injury. 1. Atrial fibrillation with rapid ventricular rate Rhythm is still Atrial flutter without symptoms. Echocardiogram mild LV dilatation, LVEF at 35-40%, with mildly reduced global LV systolic function, but it was done when the patient was not in sunus rhythm, so will require a follow up study. Anticoagulation continued with Rivaroxaban. Patient had multiple non-sustained ventricular tachycardia overnight and yesterday, thus went for a stress test today. Results were discussed among makeup editor, radiologist and attending and plan of discharge made. He is to be discharged home with a follow up with makeup editor in a week's time. He did continue to have PVCs after the stress test's first half (stress part), and later went on for resting part of the test. He was asymptomatic and his BP was normal before and after the test. Per cardiology, he has been started on Lisinopril, statin, metoprolol, and anticoagulant Rivaroxaban, which he needs to continue upon discharge. Patient has been explained about the plan of discharge and agrees to follow up, including return to emergency department judy if he gets worsening of symptoms, chest pain, heart racing (pounding), shortness of breath, among others. He has been given referral for follow up. He will follow up with his PCP judy too. 2. Right Ankle sprain X-ray noted negative for any fracture or dislocation Pain management 3. Right shoulder injury x-ray of right shoulder shows mild acromioclavicular osteoarthritis, no acute changes noted. Pain has decreased. Might need outpatient workup/follow up. 4. DVT prophylaxis Subcutaneous heparin 5. Full code 6. Heart healthy diet 7. DVT ppx pharmacological Problem List: 1. Atrial flutter 2. HFrEF (heart failure with reduced ejection fraction) 3. Arthritis of right acromioclavicular joint 4. Left ankle sprain Pain Ratin Pain Location: right foot/shoulder (mild) Pain Goal: Pain 4 or less Pain Plan: prn Tomorrow's Labs & Rationales: - NELLY LEAL MD 02/14/170: Attending MD Review Statement Attending Statement Attending MD Statement: examined this patient, discuss w/resident/PA/ELECTRICAL PROSPECTOR, agreed w/resident/PA/ELECTRICAL PROSPECTOR, reviewed EMR data (avail), discussed with nursing, discussed with case mgmt, reviewed images, amended to note Attending Assessment/Plan: The patient was seen and discussed with house staff and Dr. Carmona. Myoview images show moderate LV dilatation with mild fixed diminished uptake in IW c/w diaphagmatic attenuation artifact. No evidence of Dipyridamole induced ischemia. EKG portion also negative per Dr. Carmona. They were unable to gate images due to irregular HR. OK to discharge today as per Dr. Carmona with OP follow-up with Drs. Florian and Paula.
--- NOTE | 2017-02-14 14:15 | PN- Cardiology ---
Subjective Subjective: Feeling well. No chest pain. No palpitations. No diaphoresis. No syncope. No lightheadedness or dizziness. Objective Vital Signs and I&Os Vital Signs Date Time Temp Pulse Resp B/P B/P Pulse O2 O2 Flow FiO2 Mean Ox Delivery Rate 02/14 1334 155 104/70 02/14 1330 155 104/70 02/14 0800 98.2 96 18 104/80 97 / 0141 97.9 76 18 128/68 97 Room Air 02/13 2110 106 122/68 02/13 1653 97.2 75 16 106/72 96 Room Air 02/13 1600 95 Room Air Intake & Output 02/14 1600 02/14 0800 02/14 0000 02/13 1600 02/13 0800 02/13 0000 Intake Total 0 450 970 975 Output Total Balance 0 450 970 975 Intake, IV 10 15 Intake, Oral 0 450 960 960 Number 0 1 Bowel Movements Physical Exam: Gen: NAD HEENT: normal Lungs: clear to auscultation, normal resp. effort Heart: Irregularly irregular S1, S2, no murmurs Abdomen: Soft, nontender, no masses Extremities: No clubbing, cyanosis, or edema. Neuro: Alert and oriented x 3, cranial nerves intact Current Medications: Current Medications Sig/Laine Start time Last Medication Dose Route Stop Time Status Admin Acetaminophen 650 MG Q6P PRN 02/10 2100 AC 02/10 PO 2159 Atorvastatin Calcium 20 MG 1700 02/12 1700 AC 02/13 PO 1631 Dipyridamole 60 MG ONE ONE 02/14 1100 DC Dextrose/Water 28 ML IV 02/14 1101 Ibuprofen 600 MG Q6P PRN 02/10 2100 AC PO Metoprolol Tartrate 50 MG BID 02/13 2200 AC 02/14 PO 1330 Rivaroxaban 20 MG DAILY 02/11 1215 AC 02/14 PO 0959 Results Last 48 Hrs of Labs/Mics: Laboratory Tests 02/14/17 0603: Anion Gap 11, Estimated GFR > 60, BUN/Creatinine Ratio 15.5, Magnesium 1.9 02/13/17 0730: Anion Gap 10, Estimated GFR > 60, BUN/Creatinine Ratio 14.0, Magnesium 2.0 Assessment/Plan Assessment/Plan Assessment: 1. Atrial fibrillation 2. Multiple episodes of nonsustained ventricular tachycardia 3. Chronic systolic heart failure, LVEF 3540 percent Plan: * Continue metoprolol * Start lisinopril 10 mg daily for ventricular systolic dysfunction * Persantine sestamibi stress test completed today. * Discharge to home in the afternoon today if there is no significant ischemia on nuclear images * Follow up with Dr. Florian in 1 week * Continue Xarelto Continue telemetry? Yes
--- NOTE | 2017-02-14 14:21 | IV DIPYRIDAMOLE NUCLEAR STRESS ---
Clinical Diagnosis: abnormal EKG Referring Physician: Martell Carmona M.D. Principal Statistical Programmer: pedrito julien Date of Service: 02/14/2017 IV DIPYRIDAMOLE INFUSED: 60 mg IV AMINOPHYLLINE INFUSED: 0 mg PATIENT WEIGHT: 245 lbs INTERPRETATION: The patient's baseline EKG showed atrial fibrillation at 99 BPM. Baseline B/P 120/90. The patient received 60 mg of dipyridamole infused intravenously over a 4 minute period. TC-99M or Myoview was injected after dipyridamole infusion. The patient complained of mild abdominal discomfort. There were no EKG changes seen following pharmacologic infusion. Arrhythmias: premature ventricular contractions, couplets IMPRESSION: The test was supervised by the interpreting Die Drawing Checker, who was in attendance during the entire test. No EKG evidence of stress induced myocardial ischemia. See separately dictated Nuclear Report.
[2017-02-14 16:47] VITALS: BP 108/68
--- NOTE | 2017-02-14 17:26 | NUCLEAR MEDICINE REPORT ---
PERSANTINE STRESS AND RESTING SPECT MYOCARDIAL PERFUSION IMAGING STUDY CLINICAL INDICATION: Abnormal EKG. PROCEDURE: Regional myocardial perfusion was assessed using a 1 day protocol. Stress images were obtained on 02/14/2017 following the intravenous administration of 28 mCi Tc 99m Myoview. Stress consisted of 60 mg Persantine given intravenously. Following the sestamibi injection no aminophylline was given intravenously. Rest images were obtained 02/14/2017 following the intravenous administration of 45.0 mCi Technetium 99m Myoview. Single photon emission tomographic (SPECT) images were obtained. SPECT images were acquired in a 64 x 64 matrix of 64 projections over 180 degrees. These were reconstructed into standard short axis, horizontal and vertical long axis cardiac projections. FINDINGS: The post stress images show the left ventricular chamber to be moderately dilated. There is a mild diffuse decrease in activity in the inferior wall which is likely due to attenuation by the adjacent diaphragm. Activity in the other reynolds appears normal. The rest images are not significantly changed from the post stress images. Gated images could not be obtained because of the patient's irregular heart rate an significant ectopia. No previous study is available for comparison. IMPRESSION: No definite perfusion abnormalities are noted. Decreased activity in the inferior most likely due to attenuation by the adjacent diaphragm. Left ventricular chamber is significantly dilated. Gated images could not be obtained in the area for the wall motion and ejection fraction cannot be evaluated. This Critical Result was discussed with Dr. Raymond Campbell at 5:18 PM on 02/14/2017 and it was ascertained that the content and urgency of the report was understood at the time of direct communication.
[2017-02-14] MEDS ORDERED: LISINOPRIL10 M1 PO (17:28)
[2017-02-14] MEDS ORDERED: METOPROLOL TART50 M1 PO (17:29)
[2017-02-14] MEDS ORDERED: ATORVASTATIN CA20 M1 PO (17:46)
--- NOTE | 2017-02-14 23:17 | Discharge Summary ---
Visit Information Visit Dates Admission Date: 02/10/17 Discharge Date: 02/14/17 Hospital Course Course Attending Physician: NELLY LEAL MD Primary Care Physician: LESLIE PADILLA,[facility] Course: This is a 51 year male with no significant past medical history form to be in rapid A. fib while evaluating in ER for ankle injury. He was managed in the telemetry floor for the following issues: 1. Atrial fibrillation with rapid ventricular rate Patient's heart rate was found to be very high in 160s, but the patient seemed comfortable with that. This was his first ever episode, and denied any other past medical history. Patient was started on IV Cardizem drip which lowered his heart rate to 66-86 on the day of discharge. His later EKGs read as atrial flutter rhythm. he was completely asymptomatic upon discharge. Echocardiogram mild LV dilatation, LVEF at 35-40%, with mildly reduced global LV systolic function, but it was done when the patient was not in sunus rhythm, so will require a follow up study. Anticoagulation started with Rivaroxaban. Patient had multiple non-sustained ventricular tachycardia, thus went for a stress test. Results were discussed among food service clerk, radiologist and attending and plan to discharge finalized. He was discharged home with plan to follow up with food service clerk in a week's time. He did continue to have PVCs after the stress test's first half (stress part), and later went on for resting part of the test. He was asymptomatic and his BP was normal before and after the test. Per cardiology, he has been started on Lisinopril, statin, metoprolol, and anticoagulant Rivaroxaban, which he needs to continue upon discharge. Patient has been explained about the plan of discharge and agrees to follow up, including return to emergency department judy if he gets worsening of symptoms, chest pain, heart racing (pounding), shortness of breath, among others. He has been given referral for follow up. He will follow up with his PCP judy too. 2. Right Ankle sprain X-ray noted negative for any fracture or dislocation Pain management done 3. Right shoulder injury x-ray of right shoulder shows mild acromioclavicular osteoarthritis, no acute changes noted. Pain has decreased. Might need outpatient workup/follow up. 4. DVT prophylaxis was done with subcutaneous heparin 5. Code status is Full code 6. Heart healthy diet Allergies: Coded Allergies: NO KNOWN ALLERGIES (07/18/11) Significant Procedures: Cardiac stress testing on 02/14/17. Disposition Summary Disposition Principal Diagnosis: New onset atrial fibrillation with rapid ventricular rate Additional Diagnosis: Fall injury with right ankle sprain Discharge Disposition: home or self care Discharge Instructions General Discharge Information Code Status: Full Code Patient's Diet: Heart healthy Patient's Activity: As tolerated Follow-Up Instructions/Appts: Please follow up with Dr. Florian in one week's time. Please follow up with your PCP within ten days of discharge. Please return to emergency if symptoms worsen. Medications at Discharge Discharge Medications: Start taking the following new medications: Atorvastatin Calcium (Atorvastatin Calcium) 20 MG TABLET 20 Milligram ORAL 5 PM Qty = 30 No Refills Comments: Last Taken: 02/14/17 Time: 6:00 PM Metoprolol Tartrate (Metoprolol Tartrate) 50 MG TABLET 50 Milligram ORAL TWICE DAILY Qty = 60 No Refills Comments: Last Taken: 02/14/17 Time: 1:30 PM Rivaroxaban (Xarelto) 20 MG TABLET 1 Tablet ORAL DAILY Qty = 90 No Refills Instructions: with food Comments: Last Taken: 02/14/17 Time: 10:00 AM Lisinopril (Lisinopril) 10 MG TABLET 1 Tablet ORAL DAILY Qty = 30 No Refills Comments: Last Taken: NOT GIVEN IN HOSPITAL Time: Copies To: LESLIE PADILLA,LUIS Attending MD Review Statement Documenting Attending: NELLY LEAL MD Other Findings: Agree with plan of care upon discharge. Patient to follow up with Dr. Florian regarding work restrictions for cardiac perspective and Dr. Mitchell regarding back/ right shoulder and right ankle injuries. Given note for work.
== END 2017-02-14 19:15 | DRG 310 ==
LOC: ERH 13:55 → 1NO 17:32 → ERHI 17:32 → ENRESERV 17:59 → 1NO 19:12 → ENPENDDIS 02-14 17:32 → 1NO 02-14 19:15
PROVIDERS: Emergency Medicine; Internal Medicine Endocrinology, Diabetes & Metabolism; ADMIT Internal Medicine
PROC: 3E073KZ Introduction of Other Diagnostic Substance into Coronary Artery, Percutaneous Approach (ICD-10-PCS; principal; 2017-02-14)
PROC: 4A02XM4 Measurement of Cardiac Total Activity, External Approach (ICD-10-PCS; principal; 2017-02-14)
DX: I48.91 Unspecified atrial fibrillation (principal); I47.2 Ventricular tachycardia; S93.401A Sprain of unspecified ligament of right ankle, initial encounter; W18.30XA Fall on same level, unspecified, initial encounter; Y92.89 Other specified places as the place of occurrence of the external cause; Y99.8 Other external cause status
CPT/HCPCS: 1NSP; 73030-RT; 73610-RT; 78452; 82436; 93005; 93010; 93016; 93017; 93306; 96374; 99291; A9502; J1245; J1644; J3490